=== PATIENT | male | born 1995 | race Caucasian/White ===

== ENCOUNTER 2019-05-14 18:18 | Emergency (ER) | payer BC, SELFPAY ==
--- NOTE | 2019-05-14 18:30 | ED_ITS ---
Entered by Kathy Walton, acting as scribe for Jessee Moncada MD May 14, 2019 18:18 HPI - General Adult General: Chief complaint: General Medical Stated complaint: fever/sore throat Time Seen by Provider: 05/14/19 18:29 Source: patient Mode of arrival: ambulatory Limitations: no limitations History of Present Illness: HPI narrative: 23-year-old male states has had a sore throat along with fever for the last 2 days. He has been in contact with sick contacts as well. He denies any difficulty swallowing stated is very painful to swallow complaint: sore throat, fever Onset (ago): day(s) (today) Location: mouth Radiation: neck Severity: moderate Quality: sharp Pain Consistency: constant Relieving factors: none Exacerbating factors: eating Associated symptoms: Reports fevers/chills and other (sore throat); Deny chest pain, dyspnea, headache(s), nausea, rash or vomiting Treatments prior to arrival: none Review of Systems General: Reports: 10 or more systems reviewed and unremarkable except in HPI and below Const: Reports: fever Eyes: Denies: blurry vision or eye discomfort ENMT: Reports: throat pain and painful swallowing Card: Denies: chest pain Resp: Denies: shortness of breath GI: Denies: abdominal pain, nausea, vomiting or diarrhea : Denies: painful urination Musc: Denies: back pain Skin/Breast: Denies: rash Neuro: Denies: headache Psych: Denies: depression Dm/Lymph: Denies: easy bruising All/Imm: Denies: hives PFSH ED PFSH: Social History Smoking and tobacco status: current every day smoker Physical Exam Const: COMMON NORMALS: no apparent distress, oriented x3 and healthy appearing HENMT: OTHER: Erythema to posterior tonsils with pus pockets bilateral no uvul ar deviation. Cervical lymphadenopathy. Eye: COMMON NORMALS: PERRL and EOMs intact bilaterally PUPIL: Yes PERRL Neck/C-Spine: COMMON NORMALS: full ROM and supple GENERAL: Yes lymp hadenopathy and Yes tender Lymph: LYMPHATIC: lymphadenopathy Chest: COMMONS NORMALS: inspection of chest normal and palpation of chest normal Resp: COMMON NORMALS: normal respiratory effort, no retractions, no use of accessory muscles and clear to auscultation bilaterally AUSCULTATION: clear to auscultation bilaterally Cardio: COMMON NORMALS: regular rate, regular rhythm and no murmurs RATE: regular rate RHYTHM: regular rhythm GI: COMMON NORMALS: normal to inspection, nondistended, normoactive bowel sounds, soft to palpation, non-tender and no masses PALPATION: Yes soft Extremity: COMMON NORMALS: normal to inspection and full ROM Neuro: COMMON NORMALS: oriented x3, moves all extremities and no focal motor deficits Psych: COMMON NORMALS: mental status grossly normal, thought process normal and cooperative THOUGHT PROCESS: normal thought process Skin: COMMON NORMALS: no rashes or lesions noted and no wounds GENERAL SKIN EXAM: no rashes or lesions noted Course Vital Signs: Vital signs: Vital Signs Temperature 101.7 F H 05/14/19 18:33 Pulse Rate 117 H 05/14/19 18:33 Respiratory Rate 18 05/14/19 18:33 Blood Pressure 132/78 05/14/19 18:33 Pulse Oximetry 96 05/14/19 18:33 MDM - General Adult MDM Narrative: Medical decision making narrative: Patient presents with sore throat and has a fever along with pus pockets. Patient has no signs of abscess. Patient given steroids here and will prescribe penicillin. Patient is to follow-up with primary care doctor in 3 to 5 days return if worsening. Discharge Plan Discharge Patient Disposition: Home, Self-Care Clinical Impression: Strep throat Condition: Stable Prescriptions: New penicillin V potassium 500 mg tablet 500 mg PO Q8H 10 Days Qty: 30 RF: 0 Discharge Orders: Discharge Order (Routine); Ordered 05/14/19 Ordered By: Jessee Moncada Discharge Diet: Advance as tolerated Discharge Activity: Resume usual activity Patient Instructions: Strep Throat (ED) Stand Alone Forms: Work/School Release Coding Level of Care Code ED Recreational Assistant for Chg Fwd Exam Comprehensive The documentation recorded by the Anton phan Bridget Annette, accurately reflects the service I personally performed and the decisions made by , Jessee Moncada MD May 14, 2019 18:18
[2019-05-14 18:33] VITALS: BP 132/78; PULSE 117; RESP 18; TEMP 38.7; O2SAT 96; BMI 20.7
[2019-05-14] MEDS: dexamethasone 10 mg/mL INJ IM (18:45)
== END 2019-05-14 19:13 | disposition home or self-care (01) ==
PROVIDERS: Emergency Provider Emergency Medicine
DX: J02.0 Streptococcal pharyngitis (principal); F17.200 Nicotine dependence, unspecified, uncomplicated
CPT/HCPCS: 12345; 96372; 99281; 99283; J1100

== ENCOUNTER → 2019-11-16 08:44 | Outpatient (BNVA) | payer BC, OTHER, SELFPAY | PROVIDERS: PCP Family Medicine; Visit Provider Urology | DX: R30.0 Dysuria (principal); N52.9 Male erectile dysfunction, unspecified | CPT/HCPCS: 81001 ==

== ENCOUNTER 2021-12-15 15:10 | Emergency (ER) | payer OTHER, BC, SELFPAY ==
[2021-12-15 15:15] VITALS: BP 129/78; PULSE 100; RESP 16; TEMP 37.1; O2SAT 94; BMI 22.8
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
[2021-12-15 17:10] VITALS: BP 122/74; PULSE 78; RESP 16
== END 2021-12-15 17:12 | disposition home or self-care (01) ==
PROVIDERS: Emergency Provider Family Medicine; PCP Family Medicine
DX: S09.8XXA Other specified injuries of head, initial encounter (principal); Y35.891A Legal intervention involving other specified means, law enforcement official injured, initial encounter; Y99.0 Civilian activity done for income or pay; M79.89 Other specified soft tissue disorders
CPT/HCPCS: 70450; 70486; 72125; 99284

== ENCOUNTER → 2022-09-13 14:20 | Outpatient (BNVA) | payer BC, SELFPAY | PROVIDERS: PCP Family Medicine; Visit Provider Family Medicine | DX: N41.1 Chronic prostatitis (principal); Z13.6 Encounter for screening for cardiovascular disorders | CPT/HCPCS: 80053; 84443; 85025; 87491; 87591; 87661 ==

== ENCOUNTER → 2023-12-27 14:23 | Outpatient (BNVA) | payer BC, SELFPAY | PROVIDERS: PCP Family Medicine; Visit Provider Nurse Practitioner Family | DX: J02.9 Acute pharyngitis, unspecified (principal) | CPT/HCPCS: 87081; 87804; 87880 ==